=== PATIENT | female | born 1995 | race Caucasian/White ===

== ENCOUNTER 2023-10-11 10:16 | Emergency (ER) | payer OTHER, SELFPAY ==
[2023-10-11] MEDS ORDERED: Acetaminophen 500 MG TAB ONE (10:58)
[2023-10-11] MEDS ORDERED: Ibuprofen 200 MG TAB ONE (10:58)
[2023-10-11 11:37] LABS: SARS-CoV-2 NAA Rapid Test Not Detected (NotDetected)
== END 2023-10-11 13:04 | disposition home or self-care (01) ==
LOC: CSHERS 10:16
DX: J10.1 Influenza due to other identified influenza virus with other respiratory manifestations (principal); M79.10 Myalgia, unspecified site; F17.210 Nicotine dependence, cigarettes, uncomplicated
CPT/HCPCS: 71045; 87081; 87430